=== PATIENT | male | born 1965 | race Hispanic/Latino ===

== ENCOUNTER 2016-09-22 08:15 | Emergency (ER) | payer OTHER ==
[2016-09-22 08:25] VITALS: BMI 25.1
--- NOTE | 2016-09-22 08:40 | C.PDOC ---
History Of Present Illness 51 y/o male presents to the ED complaining of itchy rash to back and chest x 3 days. Patient reports that his symptoms started when he put on a shirt he was [facility] at the [facility]. He states that he is allergic to shellfish but he does not have any other known allergies. Also notes that he hasn't noticed bugs on shirt or bedding. Patient denies shortness of breath, sensation of throat closing, fever, cough, runny nose, or other complaints. Time Seen by Provider: 09/22/16 08:16 Chief Complaint (Nursing): Abnormal Skin Integrity History Per: Patient History/Exam Limitations: no limitations Onset/Duration Of Symptoms: Days (3), Gradual, Persistent Current Symptoms Are (Timing): Still Present Quality Of Symptoms: Itching Recent travel outside of the [place]: No Past Medical History Reviewed: Historical Data, Nursing Documentation, Vital Signs Vital Signs: Last Vital Signs Temp 98.7 F 09/22/16 09:05 Pulse 80 09/22/16 09:05 Resp 18 09/22/16 09:05 BP 151/97 H 09/22/16 09:05 Pulse Ox 97 09/22/16 09:05 - Medical History PMH: No Chronic Diseases Surgical History: No Surg Hx Family History: States: No Known Family Hx - Social History Hx Tobacco Use: Yes (heavy smoker) Hx Alcohol Use: Yes Hx Substance Use: No - Immunization History Hx Tetanus Toxoid Vaccination: No Hx Influenza Vaccination: No Hx Pneumococcal Vaccination: No Review Of Systems Except As Marked, All Systems Reviewed And Found Negative. Constitutional: Negative for: Fever ENT: Negative for: Nose Discharge, Throat Swelling Respiratory: Negative for: Cough, Shortness of Breath Skin: Positive for: Rash Physical Exam - Physical Exam Appears: Non-toxic, No Acute Distress, Other (comfortable; speaking in full sentences) Skin: Warm, Dry, Rash (maculopapular rash mostly to upper back, extends to lower back and abdomen, spares palms and soles, non-vesicular, blanching; b/l hands, no burrows interdigital webs), Other (vitiligo to face and hands) Head: Atraumatic, Normacephalic Eye(s): bilateral: Normal Inspection, PERRL Oral Mucosa: Moist Tongue: Normal Appearing, No Swelling Lips: Normal Appearing, No Swelling Throat: Normal, No Drooling Neck: Normal ROM, Supple Chest: Symmetrical Cardiovascular: Rhythm Regular Respiratory: Normal Breath Sounds, No Rales, No Rhonchi, No Wheezing Extremity: Normal ROM, No Swelling Neurological/Psych: Oriented x3, Normal Speech, Normal Cognition ED Course And Treatment Progress Note: Patient treated with Benadryl PO, Pepcid PO, and Prednisone PO. Reassessment Condition: Improved (patient is resting comfortably, tolerating PO , has no shortness of breath, is able to tolerate secretions, has no intra-oral swelling, has no stridor; rash and pruritus have improved) Disposition Counseled Patient/Family Regarding: Diagnosis, Need For Followup, Rx Given - Disposition Referrals: [facility] [Outside] Disposition: HOME/ ROUTINE Disposition Time: 08:50 Condition: STABLE Additional Instructions: FOLLOW UP WITH YOUR DOCTOR/CLINIC IN 1-2 DAYS USE MEDICATIONS DIRECTED RETURN TO ER IF SYMPTOMS WORSEN Prescriptions: DiphenhydrAMINE [Benadryl] 25 mg PO Q4H PRN #15 cap PRN Reason: allergies predniSONE [predniSONE Tab] 40 mg PO DAILY #6 tab Instructions: Contact Dermatitis (ED) Print Language: YAKUT - POA Present On Arrival: None - Clinical Impression Clinical Impression: Allergic contact dermatitis - Scribe Statement The provider has reviewed the documentation as recorded by the Scribe (Karissa Dale) Provider Attestation: All medical record entries made by the Scribe were at my direction and personally dictated by me. I have reviewed the chart and agree that the record accurately reflects my personal performance of the history, physical exam, medical decision making, and the department course for this patient. I have also personally directed, reviewed, and agree with the discharge instructions and disposition.
[2016-09-22 08:49] VITALS: TEMP 98.7; O2SAT 97
[2016-09-22 09:08] VITALS: BP 151/97; PULSE 80; RESP 18
== END 2016-09-22 09:14 | disposition home or self-care (01) ==
LOC: C.ER 08:15
DX: L23.9 Allergic contact dermatitis, unspecified cause (principal)

== ENCOUNTER 2016-10-21 11:03 | Emergency (ER) | payer OTHER ==
[2016-10-21 11:03] VITALS: BMI 25.1
--- NOTE | 2016-10-21 11:59 | C.PDOC ---
History Of Present Illness 51 y/o male with hx depression c/o lower right side back pain that started yesterday and was much worse this morning on waking. pt sts pain from right lower back and radiates towards right posterior leg, exacerbated by movement and improved by staying still. no associated numbness, tingling, saddle anesthesia, bladder or bowel dysfunction. no hx ivda. no fever or chills. no abdominal pain. denies any trauma or falls. pt stays in nursing home, was sleeping on plastic chairs until 2 nights ago, now sleeping on a bed. pt also c/o itchy rash to back, arms and legs. pt seen in ED for this approx 1 month ago, sts rash began after wearing a shirt given to him by the nursing home. pt was prescribed benadryl and prednisone with no improvement and has not followed up yet. pt denies seeing any bugs on clothing, no new soaps or detergents. Time Seen by Provider: 10/21/16 11:28 Chief Complaint (Nursing): Back Pain Past Medical History Vital Signs: Last Vital Signs Temp 97.7 F 10/21/16 11:08 Pulse 98 H 10/21/16 11:08 Resp 18 10/21/16 11:08 BP 144/96 H 10/21/16 11:08 Pulse Ox 99 10/21/16 12:00 - Medical History PMH: Anxiety, Depression Family History: States: Unknown Family Hx - Social History Hx Tobacco Use: Yes (heavy smoker) Hx Alcohol Use: Yes Hx Substance Use: No - Immunization History Hx Tetanus Toxoid Vaccination: No Hx Influenza Vaccination: Yes ('May 2016'') Hx Pneumococcal Vaccination: No ED Course And Treatment O2 Sat by Pulse Oximetry: 99 Medical Decision Making Medical Decision Making: pt feeling much better after Toradol. Will d/c with nsaids, and antihistamine for rash. no sighs of burrows in interdigital spaces, will not treat for scabies at this time. pt with elevated bp on repeat vs prior to discharge; denies any cp, sob, headache. pt sts bp has been high in past, encouraged to f/ u with medical clinic tomorrow for repeat bp check. Disposition Counseled Patient/Family Regarding: Diagnosis, Need For Followup - Disposition Disposition: HOME/ ROUTINE Disposition Time: 12:44 Condition: IMPROVED Additional Instructions: Follow up in Medical Clinic tomorrow for blood pressure check. It is elevated here in the ER. Also have your rash checked. Take medications as prescribed. Return to ER for any worsening symptoms Prescriptions: Loratadine [Claritin] 10 mg PO DAILY #20 tab Naproxen 500 mg PO BID #20 tab Instructions: Acute Low Back Pain (ED) Forms: General Discharge Instructions - Clinical Impression Clinical Impression: Low back pain
[2016-10-21 12:42] VITALS: BP 147/106; PULSE 94; RESP 20; TEMP 97.6
[2016-10-21 12:44] VITALS: O2SAT 99
== END 2016-10-21 13:04 | disposition home or self-care (01) ==
LOC: C.ER 11:03
DX: M54.5 Low back pain (principal); R21 Rash and other nonspecific skin eruption
CPT/HCPCS: 96372; 99284; J1885

== ENCOUNTER 2017-09-26 16:30 | Emergency (ER) | payer MEDICAID, OTHER ==
[2017-09-26 16:31] VITALS: BMI 25.1
[2017-09-26] MEDS ORDERED: Clotrimazole/Betamethasone Cream(15 gm) TOP STA (16:49)
[2017-09-26 16:53] VITALS: BP 131/87; PULSE 95; RESP 18; TEMP 97.7; O2SAT 100
--- NOTE | 2017-09-26 17:13 | C.PDOC ---
History Of Present Illness 52 y/o male presents to ED with complaints of worsening pain to left foot with associated swelling for 4 weeks. Patient states 4 weeks ago he passed out and hurt left foot. Patient states pain has been persistent, prompting visit to ED. Denies numbness, weakness, tingling, new injuries or any other complaints at this time. Time Seen by Provider: 09/26/17 16:44 Chief Complaint (Nursing): Lower Extremity Problem/Injury History Per: Patient History/Exam Limitations: no limitations Onset/Duration Of Symptoms: Days Current Symptoms Are (Timing): Still Present Past Medical History Reviewed: Historical Data, Nursing Documentation, Vital Signs Vital Signs: Last Vital Signs Temp 97.7 F 09/26/17 16:37 Pulse 95 H 09/26/17 16:37 Resp 18 09/26/17 16:37 BP 131/87 09/26/17 16:37 Pulse Ox 100 09/26/17 17:26 - Medical History PMH: Anxiety, Depression, HTN Surgical History: No Surg Hx Family History: States: No Known Family Hx - Social History Hx Tobacco Use: Yes (heavy smoker) Hx Alcohol Use: Yes Hx Substance Use: No - Immunization History Hx Tetanus Toxoid Vaccination: No Hx Influenza Vaccination: Yes (''May 2016'') Hx Pneumococcal Vaccination: No Review Of Systems Constitutional: Negative for: Fever, Chills Gastrointestinal: Negative for: Nausea, Vomiting Musculoskeletal: Positive for: Foot Pain. Negative for: Leg Pain Skin: Negative for: Bruising Neurological: Negative for: Weakness, Numbness Physical Exam - Physical Exam Appears: Non-toxic, No Acute Distress Skin: Warm, Dry, Other (Scaly flaking rash to inter digits and plantar surface of left foot. Foul odor. no ulcers.) Head: Atraumatic, Normacephalic Eye(s): bilateral: Normal Inspection, EOMI Oral Mucosa: Moist Neck: Normal ROM, Supple Extremity: Normal ROM, Tenderness (Mild tenderness to left 1st MTP, no deformity ), No Deformity, No Swelling Extremity: Bilateral: Normal ROM Pulses: Left Dorsalis Pedis: Normal, Right Dorsalis Pedis: Normal Neurological/Psych: Oriented x3, Normal Speech, Normal Motor, Normal Sensation Gait: Steady ED Course And Treatment O2 Sat by Pulse Oximetry: 100 (RA) Pulse Ox Interpretation: Normal Medical Decision Making Medical Decision Making: Impression:Tinea pedis and foot pain, old injury Plan: Left foot xray. Lamisil Progress: Xray shows no fracture. Patient advised on foot care and cream given to apply for rash Disposition Counseled Patient/Family Regarding: Diagnosis, Need For Followup, Rx Given - Disposition Referrals: [facility] [Outside] [facility] [Outside] [facility] [Outside] Disposition: HOME/ ROUTINE Disposition Time: 17:15 Condition: GOOD Additional Instructions: apply cream to foot twice daily follow in the clinic Instructions: Athlete's Foot (DC) Forms: [employer] (Mongolian) - POA Present On Arrival: None - Clinical Impression Clinical Impression: Tinea pedis, Foot pain, left - PA / RN CV[facility] / Resident Statement MD/DO has reviewed & agrees with the documentation as recorded. - Scribe Statement The provider has reviewed the documentation as recorded by the Scribkeila Robbins All medical record entries made by the Dainibkeila were at my direction and personally dictated by me. I have reviewed the chart and agree that the record accurately reflects my personal performance of the history, physical exam, medical decision making, and the department course for this patient. I have also personally directed, reviewed, and agree with the discharge instructions and disposition.
--- NOTE | 2017-09-26 18:00 | RAD ---
PROCEDURE: Right Foot Radiographs. HISTORY: injury/pain to foot 3 weeks, more on great toe COMPARISON: None. FINDINGS: BONES: Normal. No fracture. JOINTS: Normal. SOFT TISSUES: Normal. OTHER FINDINGS: None. IMPRESSION: Normal right foot radiographs. Concordant results with the preliminary interpretation rendered by the emergency department physician procedure.
== END 2017-09-26 17:32 | disposition home or self-care (01) ==
LOC: C.ER 16:30
DX: B35.3 Tinea pedis (principal); M79.672 Pain in left foot

== ENCOUNTER 2018-03-26 12:22 | Emergency (ER) | payer SELFPAY ==
[2018-03-26 12:22] VITALS: BMI 25.1
[2018-03-26 12:35] VITALS: BP 112/80; PULSE 106; RESP 17; TEMP 98.2; O2SAT 96
[2018-03-26] MEDS ORDERED: Phenylephrine 1% Nasal Spray (15 ml) NAS STA (13:02)
[2018-03-26] MEDS ORDERED: Phenylephrine 1% Nasal Spray (15 ml) ONE (13:06)
--- NOTE | 2018-03-26 14:35 | C.PDOC ---
History Of Present Illness 52 yo male, comes in with complaints of intermittent nose bleed x3 days from right nostril. Last nose bleed was this morning, but has now resolved. Denies any trauma, fever, nausea/vomiting, or any other associated symptoms. No other complaints at this time. Time Seen by Provider: 03/26/18 12:31 Chief Complaint (Nursing): ENT Problem History Per: Patient History/Exam Limitations: no limitations Past Medical History Reviewed: Historical Data, Nursing Documentation, Vital Signs Vital Signs: Last Vital Signs Temp 98.2 F 03/26/18 12:32 Pulse 106 H 03/26/18 12:32 Resp 17 03/26/18 12:32 BP 112/80 03/26/18 12:32 Pulse Ox 96 03/26/18 12:32 - Medical History PMH: Anxiety, Depression, HTN Family History: States: No Known Family Hx - Social History Hx Tobacco Use: Yes (heavy smoker) Hx Alcohol Use: Yes Hx Substance Use: No - Immunization History Hx Tetanus Toxoid Vaccination: No Hx Influenza Vaccination: No Hx Pneumococcal Vaccination: No Review Of Systems Constitutional: Negative for: Fever ENT: Positive for: Other (nose bleed) Gastrointestinal: Negative for: Vomiting Musculoskeletal: Negative for: Neck Pain Physical Exam - Physical Exam Appears: Non-toxic, No Acute Distress Skin: Warm, Dry, No Rash Head: Atraumatic, Normacephalic Eye(s): bilateral: Normal Inspection Ear(s): Bilateral: Normal Nose: Normal, No Epistaxis Oral Mucosa: Moist Lips: Normal Appearing Throat: Other (No blood visualized in posterior oropharynx) Neck: Normal ROM Chest: Symmetrical Cardiovascular: Rhythm Regular, No Murmur Respiratory: Normal Breath Sounds, No Accessory Muscle Use Extremity: Normal ROM, No Deformity Neurological/Psych: Oriented x3, Normal Speech ED Course And Treatment O2 Sat by Pulse Oximetry: 96 Pulse Ox Interpretation: Normal (RA) Medical Decision Making Medical Decision Making: Plan: * Phenylephrine * Reassess and Disposition On re-exam, the patient remains alert and awake. No nosebleeding in the ED. Lungs are CTA, heart is RRR, abdomen is soft, non-tender and tolerating PO well. Follow up with the Dr. Ortiz within 1-2 days without fail. Return if worsened. Disposition - Disposition Referrals: Ishmael Ortiz MD [Staff Provider] - Disposition: HOME/ ROUTINE Disposition Time: 01:00 Condition: GOOD Additional Instructions: Follow up with the medical doctor within 1-2 days without fail. Return if worsened. Instructions: Nosebleeds (DC) Forms: [facility] (Mauritanian) - Clinical Impression Clinical Impression: Epistaxis - Scribe Statement The provider has reviewed the documentation as recorded by the Scribe (Chauncey sanderson) All medical record entries made by the Scribe were at my direction and personally dictated by me. I have reviewed the chart and agree that the record accurately reflects my personal performance of the history, physical exam, medical decision making, and the department course for this patient. I have also personally directed, reviewed, and agree with the discharge instructions and disposition.
== END 2018-03-26 13:15 | disposition home or self-care (01) ==
LOC: C.ER 12:22
DX: R04.0 Epistaxis (principal); I10 Essential (primary) hypertension; F17.200 Nicotine dependence, unspecified, uncomplicated